=== PATIENT | female | born 1955 | race Caucasian/White ===

== ENCOUNTER → 2019-10-13 13:26 | Outpatient (BNVA) | payer MEDICARE, OTHER, SELFPAY | PROVIDERS: PCP Family Medicine; Referring Provider Family Medicine; Visit Provider Internal Medicine Rheumatology | DX: M05.79 Rheumatoid arthritis with rheumatoid factor of multiple sites without organ or systems involvement (principal); Z79.899 Other long term (current) drug therapy; Z11.59 Encounter for screening for other viral diseases; Z11.1 Encounter for screening for respiratory tuberculosis; T84.099A Other mechanical complication of unspecified internal joint prosthesis, initial encounter; Z86.15 Personal history of latent tuberculosis infection | CPT/HCPCS: 36415; 82565; 85025; 85651; 86140; 86431; 86480; 86704; 86705; 86706; 86709; 86803; 87340; 99205 ==

== ENCOUNTER → 2019-10-13 15:33 | Outpatient (BNVA) | payer MEDICARE, SELFPAY | PROVIDERS: PCP Family Medicine; Referring Provider Family Medicine; Visit Provider Internal Medicine Rheumatology | DX: M05.79 Rheumatoid arthritis with rheumatoid factor of multiple sites without organ or systems involvement (principal); Z79.899 Other long term (current) drug therapy; Z11.59 Encounter for screening for other viral diseases; T84.099A Other mechanical complication of unspecified internal joint prosthesis, initial encounter; Z86.15 Personal history of latent tuberculosis infection | CPT/HCPCS: 85025 ==

== ENCOUNTER 2019-10-19 08:39 | Outpatient (CLI) | payer MEDICARE, OTHER, SELFPAY ==
--- NOTE | 2019-10-19 08:59 | XR_ITS ---
WS: [id number] HAND LEFT TECHNIQUE: 3 views of the left hand CLINICAL INFORMATION: inflammatory arthritis COMPARISON: None. FINDINGS: Mild joint space narrowing involving the fifth PIP and DIP joints. Joint spaces are otherwise relativ jermaine well-preserved. No visualized significant erosive changes. Osteopenia. Radiocarpal joint: Normal. Carpal bones: Normal. XR/XR hand LT min 3V* [id number] IMPRESSION: 1. Mild joint space narrowing involving the fifth PIP and DIP joints. 2. Osteopenia. 3. No significant erosions.
--- NOTE | 2019-10-19 08:59 | XR_ITS ---
WS: [id number] HAND RIGHT TECHNIQUE: 3 views of the right hand CLINICAL INFORMATION: inflammatory arthritis COMPARISON: None. FINDINGS: Mild joint space narrowing involving the third fourth and fifth DIP joints. No significant erosive ch anges. Normal metacarpals. Radiocarpal joint: Normal. Carpal bones: Normal. XR/XR hand RT min 3V* [id number] IMPRESSION: Mild joint space narrowing involving the third, fourth, and fifth DIP joints.
--- NOTE | 2019-10-19 08:59 | XR_ITS ---
WS: [id number] PROCEDURE: XR chest 2V* [id number] CLINICAL INFORMATION: inflammatory arthritis COMPARISON: None. FINDINGS: Heart: Normal cardiac silhouette. Lungs: Lungs are clear. No consolidation or pleural fluid. Chronic emphysematous changes. Calcified g ranulomatous disease. Bones: Normal visualized bony structures. XR/XR chest 2V* [id number] IMPRESSION: 1. Chronic emphysematous changes. No acute pulmonary infiltrates. 2. Calcified granulomatous disease.
--- NOTE | 2019-10-19 08:59 | XR_ITS ---
WS: [id number] FOOT RIGHT TECHNIQUE: 3 views of the right foot CLINICAL INFORMATION: inflammatory arthritis COMPARISON: None. FINDINGS: Osteopenia. Screw fixation first metatarsal. Small erosions involving the metatarsal heads. Mild IP joint narrowi ng. Erosive changes involving the second and proximal phalanx distally extending to the PIP joint. XR/XR foot RT min 3V* [id number] IMPRESSION: 1. Osteopenia. 2. Chronic appearing erosion involving the second proximal phalanx distally ex tending to the PIP joint. 3. A few tiny erosions involving the metatarsal heads.
--- NOTE | 2019-10-19 08:59 | XR_ITS ---
WS: [id number] FOOT LEFT TECHNIQUE: 3 views of the left foot CLINICAL INFORMATION: inflammatory arthritis COMPARISON: None. FINDINGS: Osteopenia. A few tiny erosions involving the metatarsal heads. Joint spaces relatively well-preserve d. Mild narrowing of the second third and fourth PIP joints. Normal talus and calcaneus. XR/XR foot LT min 3V* [id number] IMPRESSION: 1. Osteopenia. 2. A few small erosions involving the metatarsal heads. 3. Mild joint space narrowing involving the second third and fourth PIP joints .
== END 2019-10-19 08:40 | disposition home or self-care (01) ==
LOC: RADWPI 08:48
PROVIDERS: PCP Family Medicine; Visit Provider Internal Medicine Rheumatology
DX: M13.89 Other specified arthritis, multiple sites (principal); M85.842 Other specified disorders of bone density and structure, left hand; M85.872 Other specified disorders of bone density and structure, left ankle and foot; M85.871 Other specified disorders of bone density and structure, right ankle and foot; J84.10 Pulmonary fibrosis, unspecified
CPT/HCPCS: 71046; 73130; 73630

== ENCOUNTER → 2019-10-27 09:39 | Outpatient (BNVA) | payer MEDICARE, OTHER, SELFPAY | PROVIDERS: PCP Family Medicine; Referring Provider Family Medicine; Visit Provider Internal Medicine Rheumatology | DX: M06.00 Rheumatoid arthritis without rheumatoid factor, unspecified site (principal); Z79.899 Other long term (current) drug therapy; M19.90 Unspecified osteoarthritis, unspecified site | CPT/HCPCS: 99214 ==

== ENCOUNTER → 2019-12-01 09:20 | Outpatient (BNVA) | payer MEDICARE, OTHER, SELFPAY | PROVIDERS: PCP Family Medicine; Visit Provider Internal Medicine Rheumatology | DX: M06.00 Rheumatoid arthritis without rheumatoid factor, unspecified site (principal); Z79.899 Other long term (current) drug therapy | CPT/HCPCS: 36415; 80076; 82565; 85025; 85651; 86140 ==

== ENCOUNTER → 2019-12-01 09:39 | Outpatient (BNVA) | payer MEDICARE, OTHER, SELFPAY | PROVIDERS: PCP Family Medicine | DX: M06.00 Rheumatoid arthritis without rheumatoid factor, unspecified site (principal); Z79.899 Other long term (current) drug therapy | CPT/HCPCS: 85025 ==